=== PATIENT | male | born 1940 | race Caucasian/White ===

== ENCOUNTER 2017-04-15 05:40 | Inpatient (IN) | payer OTHER ==
[2017-03-22 12:07] LABS: % IMMATURE GRANULYOCYTES 0.3 % (0.0-1.1); ABSOLUTE IMMATURE GRANULOCYTES 0.02 10^3/uL (0.00-0.10); ADD DIFF? NO; ADD MORPH? NO; ADD SCAN? NO; ATYPICAL LYMPHOCYTE FLAG 10 (0-99); FRAGMENT RBC FLAG 0 (0-99); HEMATOCRIT 45.8 % (40.0-51.0); HEMOGLOBIN 15.2 g/dL (13.7-17.5); LEFT SHIFT FLG 0 (0-99); LIPEMIA HEMOLYSIS FLAG 80 (0-99); MEAN CELL HEMOGLOBIN 31.1 pg (27.9-34.1); MEAN CELL HEMOGLOBIN CONCENTR. 33.2 g/dL (32.4-36.7); MEAN CELL VOLUME 93.9 fL (81.5-99.8); PLATELET CLUMPS FLAG 10 (0-99); PLATELET COUNT 177 10^3/uL (150-400); RED BLOOD CELL COUNT 4.88 10^6/uL (4.40-6.38); RED CELL DISTRIBUTION WIDTH 13.5 % (11.5-15.2)
--- NOTE | 2017-04-13 18:00 | GHP ---
[f rep st] PREOP HISTORY AND PHYSICAL DATE OF ADMISSION: 04/15/2017 DATE OF SURGERY: 04/15/2017 HISTORY: The patient is a 76-year-old gentleman, who presents with left knee pain, stiffness, and s welling. In his youth, he play football and rugby. His left knee has been bothersome for 30 years or more. His leg is angulating into valgus. His symptoms cause him to limp, altering his gait, imp act activities of daily living. He has tried appropriate conservative measures. His x-ray shows se yahir tricompartment osteoarthritis. A left total knee arthroplasty is planned. PAST MEDICAL HISTORY: Remarkable for hypertension, as well as pulmonary disease, managed by Dr. Stevie beltran. He also has a history of osteoporosis. MEDICATIONS: Include simvastatin 10 mg p.o. daily, valsartan 320 mg p.o. daily. ALLERGIES: He has an allergy to Aleve, that causes swelling. He is also using aspirin 81 mg p.o. daily, that he will stop prior to surgery. PAST SURGICAL HISTORY: Include cataract surgery, he has had a colonoscopy. REVIEW OF SYSTEMS: Significant for his pulmonary disease. PHYSICAL EXAM: GENERAL: The patient is a well-developed, well-nourished male, in no apparent distr ess. HEAD AND NECK: Normocephalic, atraumatic. CHEST: Clear. CARDIOVASCULAR: Regular rate and rhythm. ABDOMEN: Soft. NEUROLOGIC: He is alert and oriented x3. EXTREMITIES: Examination of th e left knee shows a flexion contracture of at least 10 degrees and significant increased valgus alig nment compared to the opposite side. He has bony prominence along the lateral joint line. He has m edial and lateral joint line tenderness. Ligamentously appears stable. Neurovascular exam appears intact. SKIN: Intact. X-rays show the left knee is severely arthritic. This is tricompartment osteoarthritis with valgus malalignment, severe osteophytes and subchondral sclerosis, qgsd-hs-[id number] surfaces, especially the la teral compartment, he has a flexion contracture. PLAN: Left total knee arthroplasty. The benefits and risks of surgery have been reviewed with the patient, including the risk of infection, damage to blood vessels or nerves, failure or loosening of components and need for revision, blood clots in the legs or lungs, bleeding and need for transfusi on. We have reviewed the rigorous nature of the rehabilitation. He has signed his consent form and he wishes to proceed. /[id number]/MODL
[2017-04-15] MEDS ORDERED: ROPIVACAINE 0.2% 80 MG, EPINEPHrine 0.2 MG in BAG 0 ML IU ONE (05:49)
[2017-04-15] MEDS ORDERED: POVIDONE-IODINE 20 ML in SODIUM CL IRRIG SOLUTION 500 ML IRR ONE (05:49)
[2017-04-15] MEDS ORDERED: ceFAZolin 2 GM/DEXTROSE 100 ML IV ONE (05:49)
[2017-04-15] MEDS ORDERED: TRANEXAMIC ACID 700 MG in NS 100 ML IV ONE ×2 (05:49→08:30)
[2017-04-15] MEDS ORDERED: ACETAMINOPHEN 325 MG TAB PO ONE (05:49)
[2017-04-15] MEDS ORDERED: DEXAMETHASONE 4 MG/ML VIAL IVP ONE (05:49)
[2017-04-15] MEDS ORDERED: FAMOTIDINE 20 MG TAB PO ONE (05:49)
[2017-04-15] MEDS ORDERED: DEXAMETHASONE 4 MG/ML VIAL ONE (05:54)
[2017-04-15] MEDS ORDERED: FAMOTIDINE 20 MG TAB ONE (05:54)
[2017-04-15] MEDS ORDERED: ACETAMINOPHEN 325 MG TAB ONE (05:54)
[2017-04-15] MEDS ORDERED: CEFAZOLIN 2 GM/DEXTROSE/100 ML BAG IV ONE (05:55)
[2017-04-15] MEDS ORDERED: LIDOCAINE 1% 2 ML INJ ONE (05:55)
[2017-04-15] MEDS ORDERED: LIDOCAINE 1% 2 ML INJ ID PRN (06:27)
[2017-04-15] MEDS ORDERED: LR 1,000 ML IV ONE (06:27)
[2017-04-15] MEDS ORDERED: ceFAZolin 1 GM/5 ML SYR ONE (06:37)
--- NOTE | 2017-04-15 07:09 | PDANEPAE ---
ANE History of Present Illness 76 yeaer old with Left knee arthritis ANE Past Medical History - Cardiovascular History Hx Hypertension: Yes Hx Arrhythmias: No Hx Chest Pain: No Hx Coronary Artery / Peripheral Vascular Disease: No Hx CHF / Valvular Disease: No Hx Palpitations: No Cardiovascular History Comment: WELL CONTROLLED W/MED - Pulmonary History Hx COPD: No Hx Asthma/Reactive Airway Disease: No Hx Recent Upper Respiratory Infection: No Hx Oxygen in Use at Home: No Hx Sleep Apnea: No Sleep Apnea Screening Result - Last Documented: Positive Pulmonary History Comment: RECENT DRY COUGH. STIFF NECK & FATIGUE. 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 COLONOSCOPY ANE Review of Systems - Exercise capacity METS (RN): 4 METS ANE Patient History - Allergies Allergies/Adverse Reactions: naproxen Allergy (Verified 07/13/16 11:46) naproxen sodium [From Aleve] Allergy (Verified 07/13/16 11:47) - Home Medications Home Medications: Simvastatin [Zocor 20 mg (RX)] 20 mg PO DAILY18 03/18/12 [Last Taken 04/14/17 22 :00] Herbals/Supplements -Info Only 1 ea PO DAILY 07/12/16 [Last Taken 04/11/17] Ascorbic Acid [Vitamin C 500 mg (*)] 1,000 mg PO DAILY 02/21/17 [Last Taken ] Aspirin [Aspirin 81mg (*)] 81 mg PO DAILY 02/21/17 [Last Taken 04/11/17] Multivitamins [Multivitamin (*)] 1 each PO DAILY 02/21/17 [Last Taken 04/11/17] [place]-3 Fatty Acids [Fish Oil 1000 mg (*)] 1,000 mg PO DAILY 02/21/17 [Last Taken 04/11/17] Valsartan [Diovan (*)] 320 mg PO DAILY 02/21/17 [Last Taken 04/14/17 09:00] - NPO status NPO Since - Liquids (Date): 04/14/17 NPO Since - Liquids (Time): 22:00 NPO Since - Solids (Date): 04/14/17 NPO Since - Solids (Time): 19:30 - Smoking Hx Smoking Status: Former smoker - Alcohol Use Alcohol Use: Occasionally - Family Anes Hx Family Hx Anesthesia Complications: NEG ANE Labs/Vital Signs - Labs Result Diagrams: 03/22/17 11:19 - Vital Signs Blood Pressure: 123/71 Heart Rate: 66 Respiratory Rate: 20 O2 Sat (%): 94 Height: 175.26 cm Weight: 68.039 kg ANE Physical Exam - Airway Neck exam: FROM Mallampati Score: Class 1 Mouth exam: normal dental/mouth exam - Pulmonary Pulmonary: no respiratory distress, clear to auscultation - Cardiovascular Cardiovascular: regular rate and rhythym - ASA Status ASA Status: II ANE Anesthesia Plan Anesthesia Plan: spinal Regional Anesthesia: adductor canal FNB
[2017-04-15] MEDS ORDERED: MIDAZOLAM 2 MG/2 ML VIAL IVP ONE (07:14)
--- NOTE | 2017-04-15 07:14 | PDHPUP ---
History & Physical Update H&P update statement: This history and physical update is based on an assessment of the patient which was completed after admission or registration (within 24 hours), but prior to the surgery/procedure. H&P update: H&P reviewed & patient examined, no change in patient's condition since H&P completed
[2017-04-15] MEDS ORDERED: MIDAZOLAM 2 MG/2 ML VIAL ONE (07:16)
[2017-04-15] MEDS ORDERED: PROPOFOL/EMULSION 500 MG/50 ML BOTTLE IV ONE (07:37)
[2017-04-15] MEDS ORDERED: fentaNYL 100 MCG/2 ML INJ ONE (07:37)
[2017-04-15] MEDS ORDERED: PROPOFOL 200 MG/20 ML VIAL ONE (09:39)
[2017-04-15] MEDS ORDERED: PROMETHAZINE HCL 25 MG/ML INJ IVP PRN (09:54)
[2017-04-15] MEDS ORDERED: PROMETHAZINE HCL 25 MG SUPPR PR PRN (09:54)
[2017-04-15] MEDS ORDERED: TEMAZEPAM 15 MG CAP PO PRN (09:54)
[2017-04-15] MEDS ORDERED: CYCLOBENZAPRINE 10 MG TAB PO PRN (09:54)
[2017-04-15] MEDS ORDERED: DIPHENOXYLATE/ATROPINE LOMOTIL 1 TAB PO PRN (09:54)
[2017-04-15] MEDS ORDERED: BISACODYL 10 MG SUPP PR PRN (09:54)
[2017-04-15] MEDS ORDERED: ONDANSETRON DISINTEGRATING 4 MG TAB PO PRN (09:54)
[2017-04-15] MEDS ORDERED: MAGNESIUM HYDROXIDE 30 ML UDCUP PO PRN (09:54)
[2017-04-15] MEDS ORDERED: PHARMACY PAIN CONSULT 1 EA MISC PRN (09:54)
[2017-04-15] MEDS ORDERED: LACTULOSE 20 GM/30 ML UDCUP PO PRN (09:54)
[2017-04-15] MEDS ORDERED: ONDANSETRON 4 MG/2 ML VIAL IVP PRN ×2 (09:54→10:09)
[2017-04-15] MEDS ORDERED: METOCLOPRAMIDE 10 MG/2 ML VIAL IVP PRN (09:54)
[2017-04-15] MEDS ORDERED: diphenhydrAMINE 25 MG CAP PO PRN (09:54)
[2017-04-15] MEDS ORDERED: POLYETHYLENE GLYCOL 3350 17 GM PKT PO PRN (09:54)
[2017-04-15] MEDS ORDERED: LR 1,000 ML IV SCH (10:00)
[2017-04-15] MEDS ORDERED: NALOXONE HCL 0.4 MG/ML INJ IVP PRN (10:09)
[2017-04-15] MEDS ORDERED: fentaNYL 100 MCG/2 ML INJ IVP PRN (10:09)
--- NOTE | 2017-04-15 10:12 | POSTANESTH ---
Post Anesthetic Evaluation Cardiovascular Status: Normal, Stable Respiratory Status: Normal, Stable Level of Consciousness/Mental Status: Can Participate in Eval, Alert and Oriented Pain Control: Adequate, Prn Tx Ordered Nausea/Vomiting Control: Adequate, Prn Tx Ordered Complications Possibly Related to Anesthesia: None Noted
--- NOTE | 2017-04-15 10:24 | GOP ---
[f rep st] OPERATIVE REPORT DATE OF OPERATION: 04/15/2017 SURGEON: Benny Sanchez MD HUMAN RESOURCES COMPLIANCE MANAGER: Fco Hunt, CSFA, LSA. ANESTHESIOLOGIST: Pacheco Coburn MD. PREOPERATIVE DIAGNOSIS: Left knee osteoarthritis. POSTOPERATIVE DIAGNOSIS: Left knee osteoarthritis. PROCEDURE PERFORMED: Left total knee arthroplasty. FINDINGS: INDICATIONS: The patient is a 76-year-old male, who has severe left knee tricompartmental osteoarth ritis with valgus malalignment. This impacts his gait, his activities of daily living. He has trie d appropriate conservative management. X-rays show tricompartment osteoarthritis with degenerative lipping, subchondral sclerosis, and edsg-bq-yldd contact in the lateral compartment. Total knee art hroplasty is planned. DESCRIPTION OF PROCEDURE: The patient was taken to the operating room, and while on his side, a spi nal anesthetic was administered by Dr. Coburn. He was then rolled supine and received IV sedation. H e received 2 g of IV Ancef as well as tranexamic acid. A tourniquet was fit high on the left thigh. The left leg was prepped and draped thoroughly with chlorhexidine in the usual fashion. The leg w as elevated, exsanguinated, and the tourniquet inflated to 275 mmHg. A longitudinal incision in the anterior midline. Dissected through subcutaneous tissue and used a medial parapatellar arthrotomy. I everted the patella, removed osteophytes, and measured its thickness at 24 mm. I removed 9 mm o f cartilage and bone. I sized the patella to a 35, and I drilled peg holes. The trial plus the jess curtis patella restored the original thickness. I removed osteophytes so there would not be any bony i mpingement off the edges of the implant. I flexed the knee, removed osteophytes. I drilled a intelligence manager hole in the distal femur and used an intramedullary alignment jig. He was in fairly severe valgus malalignment, so I used a 6-degree valgus cut, an extra 2 mm to accommodate his flexion contracture. I sized the femur, and I used a size 7 cutting block, I did advance it 2 mm anteriorly, and then I completed anterior-posterior and chamfer cuts as well as the notch cuts. Size 7 femoral component was a good fit. I then used posterior and lateral retractors to expose the tibia. I used an [facility] tibial alignment jig. I set the posterior slope and rotation. I used a stylus for an appr opriate depth cut, made a perpendicular cut of the tibia. I sized this to a 6. I dialed in the rot ation in the tibial tray, and did appropriate cruciate punch to establish the rotation. All the com ponents were removed. Jet lavage irrigation was used. Methylmethacrylate applied to the tibia, and the tibial component was hammered into place. The cement was used on the femur, and the femoral co mponent hammered into place. Excess cement removed, and I placed a trial 9 mm component, extended t he knee to get good compression. The patellar component was held over cement mantle with a clamp. After I cleaned up any excess cement and the cement had hardened, I did a series of trial reductions . I found the size 10 insert allowed excellent extension, excellent rollback, and good collateral s tability. Though he was in quite a bit of valgus malalignment, the MCL was nice and stable. I plac ed the permanent 10 mm crosslink polyethylene tray. I used Betadine irrigation. He received a seco nd dose of tranexamic acid. The arthrotomy was closed with interrupted ecfwbp-do-xwgsu sutures of 0 [place]il[place]. The subcutaneous tissue was closed with 2-0 Monocryl, and the skin was closed with stap les. The wound was dressed with Betadine-soaked Adaptic, 4 x 4, sterile Webril, and a long-leg Celestino stocking. Tourniquet time was 100 minutes. There were no complications. Estimated blood lossminim al. There were no drains. Specimens include excised bone. All counts were correct. The patient w as taken in stable condition to recovery. My certified surgical technologist was a medical necessity for this total knee replacement. SUMMARY OF COMPONENTS: This is a [employer] bi-cruciate stabilized knee, all componen ts cemented. The femur is Oxinium. The poly is crosslink polyethylene. Femur size 7, tibia size 6 , patella 35, and the tray is 10 mm thick. /[id number]/MODL
[2017-04-15] MEDS: ACETAMINOPHEN 325 MG TAB PO SCH ×2 (12:08→18:13)
[2017-04-15] MEDS: ceFAZolin 2 GM/DEXTROSE 100 ML IV SCH ×2 (15:14→21:58)
[2017-04-15] MEDS: oxyCODONE IR 5 MG TAB PO PRN ×2 (16:09→21:58)
[2017-04-15 16:55] VITALS: RESP 16
[2017-04-15] MEDS ORDERED: ATORVASTATIN CALCIUM 10 MG TAB PO SCH (18:00)
[2017-04-15] MEDS: ASPIRIN 325 MG TAB PO SCH (21:58)
[2017-04-15] MEDS: SENNOSIDES/DOCUSATE SODIUM TAB PO SCH (21:58)
[2017-04-15] MEDS: FAMOTIDINE 20 MG TAB PO SCH (21:59)
[2017-04-16] MEDS: ACETAMINOPHEN 325 MG TAB PO SCH ×3 (00:56→11:16)
[2017-04-16 04:59] LABS: HEMATOCRIT 38.9 % (40.0-51.0)
[2017-04-16 07:59] VITALS: BP 120/83; PULSE 76; TEMP 97.6; O2SAT 95
[2017-04-16] MEDS: SENNOSIDES/DOCUSATE SODIUM TAB PO SCH (08:12)
[2017-04-16] MEDS: ASPIRIN 325 MG TAB PO SCH (08:13)
[2017-04-16] MEDS: FAMOTIDINE 20 MG TAB PO SCH (08:13)
[2017-04-16] MEDS: oxyCODONE IR 5 MG TAB PO PRN (08:17)
[2017-04-16] MEDS ORDERED: VALSARTAN 160 MG TAB PO SCH (09:00)
--- NOTE | 2017-04-16 09:28 | SOAPPROG ---
SOAP Progress Note Assessment/Plan: Assessment: 04/16/17 POD#1 L TKA, pain controlled, Hct 38, xray fine Plan: 04/16/17 09:26 D/C home after PT, asa, oxy Objective: Vital Signs Temp Pulse Resp BP Pulse Ox 36.4 C 76 16 120/83 H 95 04/16/17 07:57 04/16/17 07:57 04/16/17 07:57 04/16/17 07:57 04/16/17 07:57 Laboratory Results 04/16/17 04:41 04/15/17 04/16/17 04/17/17 05:59 05:59 05:59 Intake Total 2575 250 Output Total 2130 400 Balance 445 -150 ICD10 Worksheet Patient Problems: Problems Problem Status Onset Osteoarthritis of left knee Acute - ICD10 Problem Qualifiers (1) Osteoarthritis of left knee Qualifiers: Osteoarthritis type: O
--- NOTE | 2017-04-16 09:57 | PDIAF ---
- Diagnosis Code Status: Full Code - Medication Management Discharge Medications: Medications to Continue on Transfer Simvastatin [Zocor 20 mg] 20 mg PO DAILY18 03/18/12 [Last Taken 04/14/17 22:00] Herbals/Supplements -Info Only 1 ea PO DAILY 07/12/16 [Last Taken 04/11/17] Ascorbic Acid [Vitamin C 500 mg (*)] 1,000 mg PO DAILY 02/21/17 [Last Taken ] Aspirin [Aspirin 81mg (*)] 81 mg PO DAILY 02/21/17 [Last Taken 04/11/17] Multivitamins [Multivitamin (*)] 1 each PO DAILY 02/21/17 [Last Taken 04/11/17] [place]-3 Fatty Acids [Fish Oil 1000 mg (*)] 1,000 mg PO DAILY 02/21/17 [Last Taken 04/11/17] Valsartan [Diovan (*)] 320 mg PO DAILY 02/21/17 [Last Taken 04/14/17 09:00] Acetaminophen [Tylenol 325mg (*)] 650 mg PO Q6HRS #0 tab 04/16/17 [Last Taken Unknown] Aspirin [Aspirin 325 mg (*)] 325 mg PO DAILY #0 tab 04/16/17 [Last Taken Unknown ] oxyCODONE IR [Oxycodone Ir (*)] 5 - 10 mg PO Q3HRS PRN #0 tab 04/16/17 [Last Taken Unknown] Discharge Medications: Refer to the Discharge Home Medication list for PRN reason. - Orders Services needed: Physical Therapy (L TKA, WBAT, Full ROM, gait training) Diet Recommendation: no restrictions on diet Diet Texture: Regular Texture Diet Sutures/[place] Site: [place], knee, my office 2 weeks Activity/Weight Bearing Restrictions: WBAT - Follow Up Care Current Providers and Referrals: Jeniffer Salinas MD [Primary Care Provider] -
== END 2017-04-16 11:33 | disposition home health service (06) | DRG 470 ==
LOC: F3N 05:40
PROVIDERS: ADMIT Orthopaedic Surgery; ATTEND Orthopaedic Surgery
PROC: 0SRD0J9 Replacement of Left Knee Joint with Synthetic Substitute, Cemented, Open Approach (ICD-10-PCS; principal; 2017-04-15 07:15)
DX: M17.12 Unilateral primary osteoarthritis, left knee (principal); I10 Essential (primary) hypertension; M81.0 Age-related osteoporosis without current pathological fracture
CPT/HCPCS: 97110-GP; 97116-GP; 97161-GP; 97165-GO; 97530-GP; C1713; G8978-GP-CI; G8979-GP-CI; G8980-GP-CI; G8987-GO-CI; G8988-GO-CI; G8989-GO-CI; J0171; J0690; J1100; J2250; J2704; J2795; J3010